=== PATIENT | male | born 1975 | race Caucasian/White ===

== ENCOUNTER 2023-08-30 09:39 | Outpatient (CLI) | payer BC ==
[2023-08-30 10:24] LABS: #Eosinphils 0.1 10x3/uL (0.0-0.5); #Monocytes 0.4 10x3/uL (0.0-1.1); #Neutrophils 1.8 10x3/uL (1.5-8.4); %Basophils 1.1 % (0.0-2.0); %Eosinophils 2.7 % (0.0-6.0); %Lymphocytes 38.5 % (18.0-47.0); %Neutrophils 47.4 % (40.0-75.0); Hematocrit 42.9 % (38.8-50.0); Hemoglobin 14.4 g/dL (13.5-17.5); Mean Corpuscular HGB CONC 33.6 g/dL (32.0-36.0); Mean Corpuscular Hemoglobin 29.3 pg (27.0-33.0); Mean Corpuscular Volume 87.2 fl (81.2-95.1); Mean Platelet Volume 9.1 fl (7.4-10.4); Platelet Count 250 10x3/uL (150-450); RBC Distribution Width 13.3 % (11.5-14.5); Red Blood Cell (RBC) Count 4.92 10x6/uL (4.32-5.72); White Blood Cell (WBC) Count 3.7 10x3/uL (3.5-10.5)
[2023-08-30 10:28] LABS: Anion Gap 12 mmol/L (10-20); BUN (Urea Nitrogen) 17 mg/dL (8.9-20.6); Calc. Creatinine Clearance 0 mL/min (70-130); Calcium 9.5 mg/dL (7.8-10.44); Carbon Dioxide 25 mmol/L (22-29); Chloride 108 mmol/L (98-107); Estimated GFR 107; Glucose 84 mg/dL (70-105); Potassium 3.9 mmol/L (3.5-5.1); Sodium 141 mmol/L (136-145)
== END 2023-08-30 09:40 | disposition home or self-care (01) ==
LOC: LABBT 09:39
PROVIDERS: ATTEND Surgery
DX: Z01.818 Encounter for other preprocedural examination (principal); K43.9 Ventral hernia without obstruction or gangrene
CPT/HCPCS: 80048; 85025; 93005; 93010

== ENCOUNTER 2023-09-15 06:02 | Day surgery (SDC) | payer BC ==
[2023-08-30 09:53] VITALS: BMI 31.1
[~2023-09-15 06:02] MED LIST: Glycopyrrolate 0.2 MG/ML 5 ML SYRINGE ONE; PHENYLEPHRINE-NS 100 MCG/ML 10 ML SYRINGE ONE
[2023-09-15] MEDS ORDERED: CEFAZOLIN 2 GM VIAL ONE (06:28)
[2023-09-15] MEDS ORDERED: Sodium Chloride 0.9% 100 ML ONE (06:28)
[2023-09-15] MEDS ORDERED: EPINEPHrine 1 MG/ML VIAL ONE (06:39)
[2023-09-15] MEDS ORDERED: Bupivacaine 0.25% HCL 30 ML VIAL ONE (06:39)
[2023-09-15] MEDS ORDERED: Ondansetron PF 4 MG/2 ML Vial ONE (07:06)
[2023-09-15] MEDS ORDERED: PROPOFOL 20 ML ONE (07:06)
[2023-09-15] MEDS ORDERED: fentaNYL PF 100 MCG/2 ML SYRINGE ONE (07:06)
[2023-09-15] MEDS ORDERED: Dexmedetomidine 200 MCG/2 ML VIAL ONE (07:06)
[2023-09-15] MEDS ORDERED: Rocuronium Bromide 10 MG/ML (10ML VIAL) ONE (07:06)
[2023-09-15] MEDS ORDERED: Dexamethasone 4 mg/ml Vial ONE (07:06)
[2023-09-15] MEDS ORDERED: Lidocaine 1% PF 5 ML VIAL ONE (07:08)
[2023-09-15] MEDS ORDERED: Lidocaine 2% 6 ML (Jelly) SYR ONE (07:18)
[2023-09-15] MEDS ORDERED: SUGAMMADEX SODIUM 200 MG/2 ML VIAL ONE (08:24)
[2023-09-15] MEDS ORDERED: fentaNYL 50 mcg/mL 1 mL Vial ONE ×3 (08:33→09:11)
[2023-09-15] MEDS ORDERED: HYDROcodone/Acetaminophen 5/325 mg Tablet ONE (09:42)
== END 2023-09-15 11:42 | disposition home or self-care (01) ==
LOC: SDC 06:02
PROVIDERS: ATTEND Surgery
PROC: 0WUF4JZ Supplement Abdominal Wall with Synthetic Substitute, Percutaneous Endoscopic Approach (ICD-10-PCS; principal; 2023-09-15)
DX: K43.9 Ventral hernia without obstruction or gangrene (principal)
CPT/HCPCS: A4314; C1781; J0171; J1100; J2405; J2704; J3010; J3490; S0020